=== PATIENT | male | born 1965 | race Caucasian/White ===

== ENCOUNTER 2024-02-04 10:12 | Emergency (ER) | payer BC, OTHER ==
[~2024-02-04] VITALS: Ht 172.7 cm; Wt 99.8 kg
[2024-02-04] MEDS ORDERED: Norco 5-325 Ta1 EACH PO (11:12)
== END 2024-02-04 11:17 | disposition home or self-care (01) ==
LOC: ER 10:12
DX: M25.562 Pain in left knee (principal); X58.XXXA Exposure to other specified factors, initial encounter
CPT/HCPCS: 29505; 99283-25